=== PATIENT | male | born 1995 | race Caucasian/White ===

== ENCOUNTER 2016-10-27 10:11 | Outpatient (CLI) | payer BC, OTHER ==
[~2016-10-27 10:11] MED LIST: NO MEDS
[2016-10-27 10:58] LABS: BASOPHILS % (AUTO) 0.3 % (0.0-2.0); DIFF TOTAL % 100 %; EOSINOPHILS # (AUTO) 0.2 /CMM (0.0-0.7); EOSINOPHILS % (AUTO) 2.1 % (0.0-6.0); HEMATOCRIT 45 % (39-51); HEMOGLOBIN 15.4 g/dL (13.5-17.5); LYMPHOCYTES # (AUTO) 1.3 /CMM (0.8-4.8); LYMPHOCYTES % (AUTO) 16.3 % (20.0-44.0); MEAN CORPUSCULAR HEMOGLOBIN 30 PG (26.0-33.0); MEAN CORPUSCULAR HGB CONC 34 g/dl (31.0-36.0); MEAN CORPUSCULAR VOLUME 89 fL (80-96); MONOCYTES # (AUTO) 0.5 /CMM (0.1-1.30); MONOCYTES % (AUTO) 5.6 % (2.0-12.0); NEUTROPHILS # (AUTO) 6.1 /CMM (1.8-8.9); NEUTROPHILS % (AUTO) 75.7 % (43.0-81.0); PLATELET COUNT (AUTO) 238 /CMM (150-450); RED BLOOD CELL COUNT(AUTO) 5.08 MIL/uL (4.5-6.0); WHITE BLOOD COUNT (AUTO) 8.1 K/uL (4.3-11.0)
[2016-10-27 11:08] LABS: CALCIUM, SERUM 8.7 mg/dL (8.5-10.1); CREATININE 1.1 mg/dL (0.6-1.3); POTASSIUM 3.8 mmol/L (3.5-5.1)
== END 2016-10-27 23:59 | disposition home or self-care (01) ==
LOC: LAB 10:11
PROVIDERS: ATTEND Internal Medicine
DX: Z00.00 Encounter for general adult medical examination without abnormal findings (principal)
CPT/HCPCS: 36415; 80048-TC; 80061-TC; 85025-TC

== ENCOUNTER 2017-03-09 07:33 | Day surgery (SDC) | payer BC, OTHER ==
[~2017-03-09] VITALS: Ht 180.3 cm; Wt 87.1 kg
[2017-03-09 08:12] LABS: BASOPHILS % (AUTO) 0.8 % (0.0-2.0); EOSINOPHILS # (AUTO) 0.3 /CMM (0.0-0.7); EOSINOPHILS % (AUTO) 4.6 % (0.0-6.0); HEMATOCRIT 45 % (39-51); HEMOGLOBIN 15.3 g/dL (13.5-17.5); LYMPHOCYTES % (AUTO) 32.2 % (20.0-44.0); MEAN CORPUSCULAR HEMOGLOBIN 30 PG (26.0-33.0); MEAN CORPUSCULAR HGB CONC 34 g/dl (31.0-36.0); MEAN CORPUSCULAR VOLUME 89 fL (80-96); MONOCYTES # (AUTO) 0.5 /CMM (0.1-1.30); MONOCYTES % (AUTO) 8.1 % (2.0-12.0); NEUTROPHILS # (AUTO) 3.4 /CMM (1.8-8.9); NEUTROPHILS % (AUTO) 54.3 % (43.0-81.0); PLATELET COUNT (AUTO) 201 /CMM (150-450); RDW COEFFICIENT OF VARIATION 13.4 (11.5-15.0); RED BLOOD CELL COUNT(AUTO) 5.05 MIL/uL (4.5-6.0); WHITE BLOOD COUNT (AUTO) 6.3 K/uL (4.3-11.0)
[2017-03-09] MEDS ORDERED: IV LR 1000 ML 1,000 ML ONE (08:25)
[2017-03-09] MEDS ORDERED: IV SET PRIMARY 1 EA INFUS.SET MC ONE (08:26)
[2017-03-09] MEDS ORDERED: NEEDLELESS EST SET LARGE BORE 1 EA INFUS.SET MC ONE (08:26)
[2017-03-09 08:34] LABS: CREATININE 1.1 mg/dL (0.6-1.3); INR 0.96 (0.87-1.13); POTASSIUM 4.1 mmol/L (3.5-5.1); PROTHROMBIN TIME 10.2 SECS (9.5-12.7)
[2017-03-09] MEDS ORDERED: LIDOCAINE HCL/PF 1% 30 ML SDV ONE (09:00)
[2017-03-09] MEDS ORDERED: BUPIVACAINE MPF 0.5% W/EPI INJ 30 ML VIAL ONE (09:00)
[2017-03-09] MEDS ORDERED: NEO/BACI/POLY B/HC OINT (15GM) 15 GM TUBE TP ONE (09:48)
[2017-03-09] MEDS ORDERED: ACETAMINOPHEN 325 MG TABLET ONE (10:35)
[2017-03-09] MEDS ORDERED: GABAPENTIN 300 MG CAPSULE PO ONE (11:30)
[2017-03-09] MEDS ORDERED: IBUPROFEN 400 MG TABLET PO ONE (11:30)
[2017-03-09] MEDS ORDERED: ANESTHESIA TRAY IN PYXIS 1 EA TRAY MC ONE (12:34)
== END 2017-03-09 12:00 | disposition home or self-care (01) ==
LOC: DS 07:33
PROVIDERS: ATTEND Surgery
DX: D16.8 Benign neoplasm of pelvic bones, sacrum and coccyx (principal); L72.0 Epidermal cyst
CPT/HCPCS: 36415; 49215; 80048; 82962; 85025; 85730; 88304; 88305; J1100; J1885; J2001; J2704; J3490 ×2; J7120

== ENCOUNTER 2019-03-10 03:18 | Emergency (ER) | payer BC, OTHER ==
[~2019-03-10] VITALS: Ht 177.8 cm; Wt 86.2 kg
[2019-03-10 03:21] VITALS: BP 136/73
--- NOTE | 2019-03-10 03:38 | NUR ---
Patient discharged to home in stable condition. Written and verbal after care instructions given. Patient verbalizes understanding of instruction. Pt ambulatory with a steady gait
== END 2019-03-10 03:39 | disposition home or self-care (01) ==
LOC: ER 03:24
DX: J03.90 Acute tonsillitis, unspecified (principal); F17.200 Nicotine dependence, unspecified, uncomplicated; Z88.1 Allergy status to other antibiotic agents